=== PATIENT | female | born 1975 | race Caucasian/White ===

== ENCOUNTER 2016-11-29 07:07 | Emergency (ER) | payer OTHER ==
[~2016-11-29] VITALS: Ht 165.1 cm; Wt 81.6 kg
[~2016-11-29 07:07] MED LIST: B COMPLEX1 TAB.SA; BIOTIN10 MG PO; CELEBREX50 MG PO; CO Q10 50 MG PO; FISH OIL 1,2001 CAP PO; FLEXERIL10 MG PO; KLONOPIN1 MG PO; LIDODERM30 EA TOP; LIPITOR PO; MEDROL DOSEPAK4 MG PO; MULTI-DAY1 TAB PO; NATURAL VITA100 UNIT PO; NO MEDICATIONS; ODORLESS GARLIC1 CAP PO; OMEGA 3-6-9 11200 MG PO; OSTEO BIFLEX; TYLOX 5-500 MG1 EACH PO; VIT B-12 PO; VITAMIN D400 UNI2 PO; [UNRECOGNIZED DRUG - OTHER]; [UNRECOGNIZED DRUG - OTHER] PO
== END 2016-11-29 08:16 | disposition home or self-care (01) ==
LOC: CED 07:07
DX: L03.211 Cellulitis of face (principal); I10 Essential (primary) hypertension; Z91.14 Patient's other noncompliance with medication regimen; Z90.49 Acquired absence of other specified parts of digestive tract; Z88.0 Allergy status to penicillin; Z88.1 Allergy status to other antibiotic agents; Z88.8 Allergy status to other drugs, medicaments and biological substances
CPT/HCPCS: 99283